=== PATIENT | male | born 1990 | race Hispanic/Latino ===

== ENCOUNTER 2018-02-11 19:45 | Emergency (ER) | payer SELFPAY ==
[2018-02-11] MEDS ORDERED: DERMABOND SKIN ADHESIVE TOP ONE (20:40)
[2018-02-11] MEDS ORDERED: TETANUS & DIPHTHERIA TOX,ADULT 0.5 ML VIAL ONE (20:40)
--- NOTE | 2018-02-11 20:40 | ER ---
Nurse's Notes [facility] Name: Jesse Peguero Jr Age: 27 yrs Sex: Male : 1990 Arrival Date: 02/11/2018 Time: 19:58 Bed 11 Private MD: Diagnosis: Superficial laceration of left hand Presentation: 02/11 20:31 Presenting complaint: Patient states: he cut the top of his left hand with a afognak bar bb approx an hour ago. Transition of care: patient was not received from another setting of care. Onset of symptoms was February 11, 2018. Risk Assessment: Do you want to hurt yourself or someone else? Patient reports no desire to harm self or others. Initial Sepsis Screen: Does the patient meet any 2 criteria? No. Patient's initial sepsis screen is negative. Does the patient have a suspected source of infection? No. Patient's initial sepsis screen is negative. Care prior to arrival: None. 20:31 Method Of Arrival: Ambulatory bb 20:31 Acuity: LAURI 4 bb Triage Assessment: 20:32 General: Appears in no apparent distress. Behavior is calm, cooperative. Pain: bb Complains of pain in left hand Pain currently is 5 out of 10 on a pain scale. Neuro: Level of Consciousness is awake, alert, obeys commands, Oriented to person, place, time, situation. Cardiovascular: No deficits noted. Respiratory: Airway is patent Respiratory effort is even, unlabored, Respiratory pattern is regular. GI: No deficits noted. Derm: Skin is pink, warm \T\ dry. Musculoskeletal: Circulation, motion, and sensation intact. Injury Description: Laceration sustained to MCP of left middle finger is clean, 0.5 to 2.5 cm long, was sustained 30-60 minutes ago. no active bleeding noted at this time. Historical: - Allergies: 20:32 No Known Allergies; bb - Home Meds: 20:32 None [Active]; bb - PMHx: 20:32 Hypertension; bb - PSHx: 20:32 None; bb - Immunization history:: Adult Immunizations up to date, Last tetanus immunization: unknown. - Social history:: Smoking status: Patient/guardian denies using tobacco, Patient uses alcohol, on a daily basis. - Ebola Screening: : No symptoms or risks identified at this time. - Family history:: not pertinent. - Hospitalizations: : No recent hospitalization is reported. Screenin:34 Abuse screen: Denies threats or abuse. Nutritional screening: No deficits noted. bb Tuberculosis screening: No symptoms or risk factors identified. Fall Risk None identified. Assessment: 20:34 Reassessment: No changes from previously documented assessment. see triage assessment. bb 21:02 Reassessment: Patient is alert, oriented x 3, equal unlabored respirations, skin bb warm/dry/pink. Vital Signs: 20:32 BP 150 / 95; Pulse 90; Resp 16 S; Temp 99(TE); Pulse Ox 99% on R/A; Weight 124.74 kg bb (R); Height 5 ft. 11 in. (180.34 cm) (R); Pain 5/10; 20:32 Body Mass Index 38.35 (124.74 kg, 180.34 cm) bb ED Course: 19:58 Patient arrived in ED. es 20:28 Donny Alexandre MD is Attending Physician. rn 20:32 Triage completed. bb 20:32 Arm band placed on Patient placed in an exam room, on a stretcher, on pulse oximetry. bb 20:34 Patient has correct armband on for positive identification. Bed in low position. Call bb light in reach. Side rails up X 1. Pulse ox on. NIBP on. 20:34 No provider procedures requiring assistance completed. Patient did not have IV access bb during this emergency room visit. 20:45 Dressings: Kerlix X 1; left hand 4X4s X 1; left hand. Wound care: to laceration located bb on MCP of left middle finger was cleaned with Betadine, Patient tolerated well. 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 Exp: bb 03/31/2020. Lot #: [id number]. } Route: IM; Site: left deltoid; Outcome: 20:40 Discharge ordered by . rn 21:03 Discharged to home ambulatory. bb 21:03 Condition: stable 21:03 Discharge instructions given to patient, Instructed on discharge instructions, follow up and referral plans. wound care, Demonstrated understanding of instructions, follow-up care, wound care. 21:04 Patient left the ED. bb Signatures: Vanessa Vidales Brenda, RN RN bb Donny Alexandre MD MD rn
--- NOTE | 2018-02-11 20:40 | EDPHYS ---
Physician Documentation [facility] Name: Jesse Peguero Jr Age: 27 yrs Sex: Male : 1990 Arrival Date: 02/11/2018 Time: 19:58 Bed 11 Private MD: ED Physician Donny Alexandre HPI: 02/11 20:31 This 27 yrs old Male presents to ER via Unassigned with complaints of Hand rn Injury. 20:31 The patient or guardian reports injury. The complaints affect the MCP of left middle rn finger. Onset: The symptoms/episode began/occurred just prior to arrival. Severity of symptoms: At their worst the symptoms were very mild, in the emergency department the symptoms are unchanged. The patient has not experienced similar symptoms in the past. Reports using crowbar, slipped, hit left hand, , superficial cut to left middle knuckle, is right handed, unknown tetanus.. Historical: - Allergies: 20:32 No Known Allergies; bb - Home Meds: 20:32 None [Active]; bb - PMHx: 20:32 Hypertension; bb - PSHx: 20:32 None; bb - Immunization history:: Adult Immunizations up to date, Last tetanus immunization: unknown. - Social history:: Smoking status: Patient/guardian denies using tobacco, Patient uses alcohol, on a daily basis. - Ebola Screening: : No symptoms or risks identified at this time. - Family history:: not pertinent. - Hospitalizations: : No recent hospitalization is reported. ROS: 20:31 Constitutional: Negative for fever, chills, and weight loss, MS/Extremity: + laceration rn left hand Neuro: Negative for weakness, numbness, tingling Exam: 20:31 Constitutional: This is a well developed, well nourished patient who is awake, alert, rn and in no acute distress. MS/ Extremity: Pulses equal, no cyanosis. Neurovascular intact. Full, normal range of motion. Equal circumference. left dorsal middle knuckle with superficial 2cm angular laceration, no active bleeding, wound clean. Vital Signs: 20:32 BP 150 / 95; Pulse 90; Resp 16 S; Temp 99(TE); Pulse Ox 99% on R/A; Weight 124.74 kg bb (R); Height 5 ft. 11 in. (180.34 cm) (R); Pain 5/10; 20:32 Body Mass Index 38.35 (124.74 kg, 180.34 cm) bb Laceration: 20:31 Wound Repair of 2cm ( 0.8in ) subcutaneous laceration to MCP of left middle finger. rn Distal neuro/vascular/tendon intact. Wound prep: Extensive cleansing by nurse. Skin closed with 1 thin layer Adhesive skin closure using Dermabond. Dressed with steri-strips. Patient tolerated well. MDM: 20:28 Patient medically screened. rn 20:31 Differential diagnosis: laceration of left hand. Data reviewed: vital signs, nurses rn notes, and as a result, I will discharge patient. Counseling: I had a detailed discussion with the patient and/or guardian regarding: the historical points, exam findings, and any diagnostic results supporting the discharge/admit diagnosis, the need for outpatient follow up, to return to the emergency department if symptoms worsen or persist or if there are any questions or concerns that arise at home. Response to treatment: the patient's symptoms have markedly improved after treatment, and as a result, I will discharge patient. Special discussion: I discussed with the patient/guardian in detail that at this point there is no indication for admission to the hospital. It is understood, however, that if the symptoms persist or worsen the patient needs to return immediately for re-evaluation. 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 Exp: bb 03/31/2020. Lot #: [id number]. } Route: IM; Site: left deltoid; Disposition: 02/11/18 20:40 Discharged to Home. Impression: Superficial laceration of left hand. - Condition is Stable. - Discharge Instructions: Tissue Adhesive Wound Care, Laceration Care, Adult. - Work release form, Medication Reconciliation Form, Thank You Letter, Antibiotic Education, Prescription Opioid Use form. - Follow up: Private Physician; When: As needed; Reason: Recheck today's complaints, Re-evaluation by your physician. - Problem is new. - Symptoms have improved. 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 Impression: Superficial laceration of left bb hand. Condition is Stable. Forms are Medication Reconciliation Form, Thank You Letter, Antibiotic Education, Prescription Opioid Use. Follow up: Private Physician; When: As needed; Reason: Recheck today's complaints, Re-evaluation by your physician. Problem is new. Symptoms have improved. rn
== END 2018-02-11 21:04 | disposition home or self-care (01) ==
LOC: ER 19:45
PROC: 0JQK0ZZ Repair Left Hand Subcutaneous Tissue and Fascia, Open Approach (ICD-10-PCS; principal; 2018-02-11)
DX: S61.213A Laceration without foreign body of left middle finger without damage to nail, initial encounter (principal); W27.8XXA Contact with other nonpowered hand tool, initial encounter; Y93.89 Activity, other specified; Y92.9 Unspecified place or not applicable; Z23 Encounter for immunization; I10 Essential (primary) hypertension
CPT/HCPCS: 90714; 99283

== ENCOUNTER 2020-08-06 11:59 | Emergency (ER) | payer SELFPAY ==
[2020-08-06] MEDS ORDERED: BENZONATATE 100 MG CAP PO ONE (13:34)
--- NOTE | 2020-08-06 14:03 | RAD REPORT ---
EXAM DESCRIPTION: RAD - Chest Single View - 08/06/2020 1:48 pm CLINICAL HISTORY: COUGH, COVID-19 like symptoms COMPARISON: Portable December 2016 TECHNIQUE: AP portable chest image was obtained 08/06/2020 1:48 pm . FINDINGS: Lungs are clear. No finding to suspect COVID-19 pneumonia. Heart and vasculature are [place] l. No measurable pleural effusion and no pneumothorax. No acute bony abnormality seen. No acute aorti c findings suspected. IMPRESSION: No acute cardiopulmonary process. No significant change from comparison study.
[2020-08-06 14:53] LABS: SARS-COV-2 RT PCR POSITIVE (NEGATIVE)
--- NOTE | 2020-08-06 15:16 | ER ---
Nurse's Notes [facility] Name: Jesse Peguero Jr Age: 29 yrs Sex: Male : 1990 Arrival Date: 08/06/2020 Time: 12:02 Bed 16 Private MD: Diagnosis: Coronavirus infection, unspecified;Other specified diseases of upper respiratory tract Presentation: 08/06 12:45 Chief complaint: Patient states: i have been having a lot of COVID symptoms, like tw2 Wednesday i felt dizzy my back and body aches, coughing headache, the pressure behind my eyes,i feel like a fever, i take medicine and it goes down, no taste and no smells. Chief complaint: Patient states: also my back hurts. Coronavirus screen: chills, cough unrelated to allergies, fatigue, fever, muscle pain, nausea, runny nose, sore throat, loss of taste or smell, Client presents with at least one sign or symptom that may indicate coronavirus-19. Standard/surgical mask placed on the client. Provider contacted for isolation considerations. Ebola Screen: Patient denies travel to an Ebola-affected area in the 21 days before illness onset. Initial Sepsis Screen: Does the patient meet any 2 criteria? No. Patient's initial sepsis screen is negative. Does the patient have a suspected source of infection? No. Patient's initial sepsis screen is negative. Risk Assessment: Do you want to hurt yourself or someone else? Patient reports no desire to harm self or others. Onset of symptoms was August 06, 2020. 12:45 Method Of Arrival: Ambulatory tw2 12:45 Acuity: LAURI 3 tw2 Triage Assessment: 12:48 Headache History: Denies prior headaches. General: Appears in no apparent distress. tw2 obese, well groomed, Behavior is calm, cooperative, appropriate for age. Pain: Complains of pain in face, right eye, left eye and nose Pain currently is 10 out of 10 on a pain scale. Pain began 2-3 days ago. Also complains of photophobia. Neuro: Reports headache. Respiratory: Reports cough that is. Historical: - Allergies: 12:48 No Known Drug Allergies; tw2 - Home Meds: 12:48 None [Active]; tw2 - PMHx: 12:48 Hypertension; tw2 - PSHx: 12:48 None; tw2 - Immunization history:: Adult Immunizations. - Social history:: Smoking status: Patient uses street drugs, marijuana. Screenin:00 Abuse screen: Denies threats or abuse. Denies injuries from another. Nutritional ca1 screening: No deficits noted. Tuberculosis screening: No symptoms or risk factors identified. Fall Risk None identified. Assessment: 13:00 General: Appears in no apparent distress. comfortable, Behavior is calm, cooperative, ca1 appropriate for age, Reports feeling ill for > 3 days, fatigue for >3 days. Pain: Complains of pain in all over. Neuro: Level of Consciousness is awake, alert, obeys commands, Oriented to person, place, time, situation, Appropriate for age Reports headache. Cardiovascular: Heart tones S1 S2 present Capillary refill < 3 seconds Patient's skin is warm and dry. Respiratory: Reports cough that is Airway is patent Respiratory effort is even, unlabored, Respiratory pattern is regular, symmetrical, Breath sounds are clear bilaterally. GI: Abdomen is round non-distended, Bowel sounds present X 4 quads. Abd is soft and non tender X 4 quads. Reports diarrhea, nausea. : No signs and/or symptoms were reported regarding the genitourinary system. EENT: Throat is clear Reports nasal congestion nasal discharge. Derm: Skin is intact, is healthy with good turgor, Skin is pink, warm \T\ dry. Musculoskeletal: Circulation, motion, and sensation intact. Capillary refill < 3 seconds. 14:00 Reassessment: Patient appears in no apparent distress at this time. Patient and/or ca1 family updated on plan of care and expected duration. Pain level reassessed. Patient is alert, oriented x 3, equal unlabored respirations, skin warm/dry/pink. 15:02 Reassessment: Patient appears in no apparent distress at this time. Patient and/or ca1 family updated on plan of care and expected duration. Pain level reassessed. Patient is alert, oriented x 3, equal unlabored respirations, skin warm/dry/pink. Vital Signs: 12:45 BP 148 / 94; Pulse 69; Resp 18; Temp 97.8(TE); Pulse Ox 98% on R/A; Weight 122.47 kg tw2 (R); Height 5 ft. 11 in. (180.34 cm); Pain 8/10; 13:20 BP 143 / 94; Pulse 70; Resp 17; Temp 97.6(TE); Pulse Ox 98% on R/A; mh5 14:10 BP 132 / 91; Pulse 63; Resp 16; Temp 98.2(O); Pulse Ox 97% on R/A; mh5 15:03 BP 149 / 99; Pulse 67; Resp 16; Pulse Ox 98% on R/A; ca1 12:45 Body Mass Index 37.66 (122.47 kg, 180.34 cm) tw2 ED Course: 12:02 Patient arrived in ED. ag3 12:47 Triage completed. tw2 12:48 Arm band placed on. tw2 12:56 Nury Lin, CLEMENCIA is Primary Nurse. ca1 12:56 Brayan Yanez PA is PHCP. cp 12:57 Brayan Burgos MD is Attending Physician. cp 13:00 Patient has correct armband on for positive identification. Bed in low position. Call ca1 light in reach. Side rails up X 1. Pulse ox on. NIBP on. 13:14 COVID swab sent to lab. Flu and/or RSV swab sent to lab. Strep swab sent to lab. ca1 13:20 COVID-19 Sent. 5 13:20 Flu Sent. 5 13:20 Strep Sent. [facility] 13:20 Group A Streptococcus Rapid Sc Sent. [facility] 13:20 Influenza Screen (A Sent. 5 13:50 XRAY Chest (1 view) In Process Unspecified. EDMS 14:13 Throat Culture Sent. sv 15:37 No provider procedures requiring assistance completed. Patient did not have IV access ca1 during this emergency room visit. Administered Medications: 13:20 Drug: Tessalon Perle 200 mg Route: PO; ca1 14:23 Follow up: Response: No adverse reaction; Marked relief of symptoms ca1 Outcome: 15:16 Discharge ordered by MD. cp 15:37 Discharged to home ambulatory. ca1 15:37 Condition: stable 15:37 Discharge instructions given to patient, Instructed on discharge instructions, follow up and referral plans. medication usage, Demonstrated understanding of instructions, follow-up care, medications, Prescriptions given X 4. 15:38 Patient left the ED. ca1 Signatures: Dispatcher [employer] [facility] Perla Tenorio RN RN Brayan Yanez PA PA Allie Sidhu RN RN 2 Radha Baker [facility] Kate Forte ag3 Nury Lin, RN RN ca1 Corrections: (The following items were deleted from the chart) 13:57 13:20 CORONAVIRUS drawn and sent. [facility] SHRUTHI
--- NOTE | 2020-08-06 15:16 | EDPHYS ---
Physician Documentation [facility] Name: Jesse Peguero Jr Age: 29 yrs Sex: Male : 1990 Arrival Date: 08/06/2020 Time: 12:02 Bed 16 Private MD: ED Physician Brayan Burgos HPI: 08/06 13:15 This 29 yrs old Male presents to ER via Ambulatory with complaints of cp Headache, Cough, Runny Nose. 13:15 The patient complains of pain to the top of head and forehead. cp 13:15 The patient describes the headache as aching. cp 13:15 Onset: The symptoms/episode began/occurred 3 day(s) ago. Associated signs and symptoms: cp Pertinent positives: fever, cough, nasal congestion, Pertinent negatives: neck stiffness, vision changes. Historical: - Allergies: 12:48 No Known Drug Allergies; tw2 - Home Meds: 12:48 None [Active]; tw2 - PMHx: 12:48 Hypertension; tw2 - PSHx: 12:48 None; tw2 - Immunization history:: Adult Immunizations. - Social history:: Smoking status: Patient uses street drugs, marijuana. ROS: 13:25 Constitutional: Positive for body aches, Negative for fever, poor PO intake. cp 13:25 Eyes: Negative for injury, pain, redness, and discharge. cp 13:25 Respiratory: Positive for cough, Negative for shortness of breath, wheezing. cp 13:25 ENT: Positive for sore throat, Negative for ear pain, difficulty swallowing, difficulty cp handling secretions. 13:25 Neuro: Positive for headache, Negative for altered mental status, weakness. 13:25 All other systems are negative. Exam: 13:30 Constitutional: The patient appears in no acute distress, alert, awake, non-toxic, well cp developed, well nourished. 13:30 Head/Face: Normocephalic, atraumatic. cp 13:30 Eyes: Periorbital structures: appear normal, Conjunctiva: normal, no exudate, no injection, Lids and lashes: appear normal, bilaterally. 13:30 ENT: External ear(s): are unremarkable, Ear canal(s): are normal, clear, TM's: dullness, bilaterally, Nose: nasal drainage, that is minimal, that is clear, Mouth: Lips: moist, Oral mucosa: moist, Posterior pharynx: Airway: no evidence of obstruction, patent, Tonsils: no enlargement, no exudate, swelling, is not appreciated, erythema, that is mild, exudate, is not appreciated. 13:30 Neck: ROM/movement: is normal, is supple, no meningismus, no nuchal rigidity, Lymph nodes: no appreciated lymphadenopathy. 13:30 Chest/axilla: Inspection: normal, Palpation: is normal, no crepitus, no tenderness. 13:30 Cardiovascular: Rate: normal, Rhythm: regular. 13:30 Respiratory: the patient does not display signs of respiratory distress, Respirations: normal, no use of accessory muscles, no retractions, labored breathing, is not present, Breath sounds: bronchial sounds, that are mild, are heard diffusely, decreased breath sounds, are not appreciated, stridor, is not appreciated, + upper airway congestion. wheezing: is not appreciated. 13:30 Abdomen/GI: Inspection: abdomen appears normal, Palpation: abdomen is soft and non-tender, in all quadrants. 13:30 Back: pain, is absent, ROM is normal. 13:30 Neuro: Orientation: to person, place \T\ time. Mentation: is normal. Vital Signs: 12:45 BP 148 / 94; Pulse 69; Resp 18; Temp 97.8(TE); Pulse Ox 98% on R/A; Weight 122.47 kg tw2 (R); Height 5 ft. 11 in. (180.34 cm); Pain 8/10; 13:20 BP 143 / 94; Pulse 70; Resp 17; Temp 97.6(TE); Pulse Ox 98% on R/A; mh5 14:10 BP 132 / 91; Pulse 63; Resp 16; Temp 98.2(O); Pulse Ox 97% on R/A; mh5 15:03 BP 149 / 99; Pulse 67; Resp 16; Pulse Ox 98% on R/A; ca1 12:45 Body Mass Index 37.66 (122.47 kg, 180.34 cm) tw2 MDM: 13:03 Patient medically screened. [facility] 13:30 Differential diagnosis: meningitis, meningoencephalitis, migraine, sinusitis, cp pneumonia, influenza, strep throat. 15:15 Data reviewed: vital signs, nurses notes, lab test result(s), radiologic studies, plain cp films, and as a result, I will discharge patient. 08/06 13:08 Order name: COVID-19 ca1 08/06 13:08 Order name: Flu ca1 08/06 13:08 Order name: Strep ca1 08/06 13:09 Order name: Group A Streptococcus Rapid Sc; Complete Time: 14:55 EDMS 08/06 13:09 Order name: XRAY Chest (1 view); Complete Time: 14:55 cp 08/06 14:12 Order name: Throat Culture EDMS 08/06 14:54 Order name: COVID-19/FLU A+B EDMS Administered Medications: 13:20 Drug: Tessalon Perle 200 mg Route: PO; ca1 14:23 Follow up: Response: No adverse reaction; Marked relief of symptoms ca1 Disposition: 08/06/20 15:16 Discharged to Home. Impression: Coronavirus infection, unspecified, Other specified diseases of upper respiratory tract. - Condition is Stable. - Discharge Instructions: Upper Respiratory Infection, Adult, COVID-19. - Prescriptions for Tessalon Perles 100 mg Oral Capsule - take 2 capsule by ORAL route every 8 hours As needed; 30 capsule. Zithromax Z- Pelon 250 mg Oral Tablet - take 1 tablet by ORAL route as directed for 5 days Day 1 - take two (2) tablets one time. Day 2, 3, 4 , 5 take one (1) tablet once daily.; 6 tablet. Medrol (Pelon) 4 mg Oral Tablets, Dose Pack - take 1 tablet by ORAL route as directed - follow package instructions; 1 packet. Albuterol Sulfate 90 mcg/actuation - inhale 1-2 puff by INHALATION route every 4-6 hours; 1 Inhaler. - Work release form, Medication Reconciliation Form, Thank You Letter, Antibiotic Education, Prescription Opioid Use form. - Follow up: Private Physician; When: 2 - 3 days; Reason: Worsening of condition. - Problem is new. - Symptoms have improved. Addendum: 08/07/2020 17:20 Co-signature as Attending Physician, Brayan Burgos MD I agree with the assessment and c lopez plan of care. Signatures: Dispatcher [employer] [facility] Brayan Burgos MD MD cha Page, Corey, PA PA Allie Sidhu RN RN tw2 Acob, Nury, RN RN ca1 Corrections: (The following items were deleted from the chart) 08/06 13:57 13:09 CORONAVIRUS ordered. EDMS EDMS 15:38 15:16 08/06/2020 15:16 Discharged to Home. Impression: Coronavirus infection, ca1 unspecified; Other specified diseases of upper respiratory tract. Condition is Stable. Forms are Medication Reconciliation Form, Thank You Letter, Antibiotic Education, Prescription Opioid Use. Follow up: Private Physician; When: 2 - 3 days; Reason: Worsening of condition. Problem is new. Symptoms have improved. cp
[2020-08-06 16:08] VITALS: TEMP 98.2
[2020-08-06 16:09] VITALS: BP 149/99; O2SAT 98
== END 2020-08-06 15:38 | disposition home or self-care (01) ==
LOC: ER 11:59
DX: U07.1 COVID-19 (principal); J98.8 Other specified respiratory disorders; I10 Essential (primary) hypertension
CPT/HCPCS: 0240U; 71045; 87070; 87081; 99284

== ENCOUNTER 2022-12-30 14:34 | Emergency (ER) | payer SELFPAY ==
[2022-12-30] MEDS ORDERED: TETANUS & DIPHTHERIA TOX,ADULT 0.5 ML VIAL ONE (15:06)
[2022-12-30] MEDS ORDERED: LIDOCAINE 1% MPF 5 ML VIAL ONE (15:06)
--- NOTE | 2022-12-30 15:51 | ER ---
Nurse's Notes [facility] Name: Jesse Peguero Jr Age: 32 yrs Sex: Male : 1990 Arrival Date: 12/30/2022 Time: 14:34 Bed Treatment Private MD: Diagnosis: Laceration without foreign body of right index finger without damage to nail Presentation: 12/30 14:42 Chief complaint: Patient states: "1 hour ago, I was cutting something with a handsaw mb9 and sliced my right index finger". Coronavirus screen: Vaccine status: Patient reports receiving the 2nd dose of the covid vaccine. Ebola Screen: No symptoms or risks identified at this time. Initial Sepsis Screen: Does the patient meet any 2 criteria? No. Patient's initial sepsis screen is negative. Does the patient have a suspected source of infection? No. Patient's initial sepsis screen is negative. Risk Assessment: Do you want to hurt yourself or someone else? Patient reports no desire to harm self or others. Onset of symptoms was December 30, 2022. 14:42 Method Of Arrival: Ambulatory mb9 14:42 Acuity: LAURI 4 mb9 Historical: - Allergies: 14:44 No Known Allergies; mb9 - Home Meds: 14:44 None [Active]; mb9 - PMHx: 14:44 Hypertension; mb9 - PSHx: 14:44 None; mb9 - Immunization history:: Adult Immunizations up to date. - Social history:: Smoking status: Patient denies any tobacco usage or history of. Screenin:06 [facility] ED Fall Risk Assessment (Adult) History of falling in the last 3 months, mb9 including since admission No falls in past 3 months (0 pts) Confusion or Disorientation No (0 pts) Intoxicated or Sedated No (0 pts) Impaired Gait No (0 pts) Mobility Assist Device Used No (0 pt) Altered Elimination No (0 pt) Score/Fall Risk Level 0 - 2 = Low Risk Oriented to surroundings, Maintained a safe environment, Educated pt \\T\\ family on fall prevention, incl call for assistance when getting out of bed. Abuse screen: Denies threats or abuse. Nutritional screening: No deficits noted. Tuberculosis screening: No symptoms or risk factors identified. Assessment: 16:04 Pain: Complains of pain in right hand Quality of pain is described as throbbing. mb9 Respiratory: Airway is patent Respiratory effort is even, unlabored, Respiratory pattern is regular, symmetrical. Derm: Skin is pink, warm \\T\\ dry. Musculoskeletal: Range of motion: intact in all extremities. Injury Description: Laceration sustained to dorsal aspect of proximal phalanx of right index finger is superficial, 0.5 to 2.5 cm long, not bleeding. Vital Signs: 14:42 Weight 127.01 kg; Height 5 ft. 11 in. ; mb9 14:42 BP 133 / 85; Pulse 71; Resp 18; Temp 98.2; Pulse Ox 100% ; Pain 8/10; mb9 16:15 BP 128 / 79; Pulse 76; Resp 17; Pulse Ox 98% on R/A; mb9 14:42 Body Mass Index 39.05 (127.01 kg, 180.34 cm) mb9 14:42 Pain Scale: Adult mb9 ED Course: 14:37 Patient arrived in ED. kj1 14:41 Zeinab Holloway FNP-C [facility] kb 14:41 Donny Alexandre MD is Attending Physician. kb 14:44 Triage completed. mb9 14:44 Arm band placed on. mb9 16:06 Assist provider with laceration repair. Patient did not have IV access during this mb9 emergency room visit. 16:09 Placed in gown. Bed in low position. Call light in reach. Side rails up X 1. Client mb9 placed on continuous cardiac and pulse oximetry monitoring. NIBP monitoring applied. Administered Medications: 15:10 Drug: Tetanus-Diphtheria Toxoid IM Adult 0.5 ml {Property Technician: [employer]. Exp: mb9 01/10/2024. Lot #: [id number]. } Route: IM; Site: right deltoid; 16:05 Follow up: Response: No adverse reaction mb9 15:50 Drug: Lidocaine Infiltration (1 %) 1 vials Volume: 5 ml; Route: Infiltration; mb9 Medication: 16:09 VIS not applicable for this client. mb9 Outcome: 15:50 Discharge ordered by . kb 16:15 Discharged to home ambulatory. mb9 16:15 Condition: stable 16:15 Discharge instructions given to patient, Instructed on discharge instructions, follow up and referral plans. Demonstrated understanding of instructions, follow-up care. 16:16 Patient left the ED. mb9 Signatures: Zeinab Holloway KEG INSPECTOR-C KEG INSPECTOR-Amber Cameron kj1 Augustina Vital RN RN mb9 Corrections: (The following items were deleted from the chart) 14:45 14:42 Pulse 71bpm; Resp 18bpm; Pulse Ox 100%; Temp 98.2F; Pain 8/10, Adult; mb9 mb9
--- NOTE | 2022-12-30 15:51 | EDPHYS ---
Physician Documentation [facility] Name: Jesse Peguero Jr Age: 32 yrs Sex: Male : 1990 Arrival Date: 12/30/2022 Time: 14:34 Bed Treatment Private MD: ED Physician Donny Alexandre HPI: 12/30 15:48 This 32 yrs old Male presents to ER via Ambulatory with complaints of Finger kb Injury. 15:48 The patient has a laceration related to: cutting wood with hand saw and it hit finger kb causing laceration occurred outdoors, and there are no complicating factors. The injury was accidental. The laceration(s) is(are) located on the dorsal aspect of proximal phalanx of right index finger. Onset: The symptoms/episode began/occurred just prior to arrival. Associated signs and symptoms: The patient has no apparent associated signs or symptoms. The patient has not experienced similar symptoms in the past. The patient has not recently seen a physician. Historical: - Allergies: 14:44 No Known Allergies; mb9 - Home Meds: 14:44 None [Active]; mb9 - PMHx: 14:44 Hypertension; mb9 - PSHx: 14:44 None; mb9 - Immunization history:: Adult Immunizations up to date. - Social history:: Smoking status: Patient denies any tobacco usage or history of. ROS: 15:44 Constitutional: Negative for fever, chills, and weight loss. kb 15:44 Skin: Positive for laceration(s), of the dorsal aspect of proximal phalanx of right index finger. 15:44 All other systems are negative. Exam: 15:44 Constitutional: This is a well developed, well nourished patient who is awake, alert, kb and in no acute distress. Head/Face: Normocephalic, atraumatic. ENT: Moist Mucous membranes Cardiovascular: Regular rate and rhythm with a normal S1 and S2. No gallops, murmurs, or rubs. No pulse deficits. Respiratory: Respirations even and unlabored. No increased work of breathing. Talking in full sentences MS/ Extremity: Pulses equal, no cyanosis. Neurovascular intact. Full, normal range of motion. Neuro: Awake and alert, GCS 15, oriented to person, place, time, and situation. Moves all extremities. Normal gait. 15:44 Skin: injury, laceration(s), the wound is approximately 2.5 cm(s), of the dorsal aspect of proximal phalanx of right index finger, that can be described as clean, no foreign body, irregular, jagged, without bleeding. Vital Signs: 14:42 Weight 127.01 kg; Height 5 ft. 11 in. ; mb9 14:42 BP 133 / 85; Pulse 71; Resp 18; Temp 98.2; Pulse Ox 100% ; Pain 8/10; mb9 16:15 BP 128 / 79; Pulse 76; Resp 17; Pulse Ox 98% on R/A; mb9 14:42 Body Mass Index 39.05 (127.01 kg, 180.34 cm) mb9 14:42 Pain Scale: Adult mb9 Laceration: 15:49 Wound Repair of 2.5cm ( 1.0in ) subcutaneous laceration to dorsal aspect of proximal kb phalanx of right index finger. Linear shaped.. Distal neuro/vascular/tendon intact. Anesthesia: Wound infiltrated with 3 mls of 1% lidocaine. Wound prep: Extensive cleansing with hibiclenz by me, Wound irrigation with saline by me, Wound margin revised, Wound explored. Skin closed with 5 4-0 Prolene using simple sutures and sterile technique. Patient tolerated well. MDM: 14:41 Patient medically screened. kb 15:45 Data reviewed: vital signs, nurses notes. Counseling: I had a detailed discussion with kb the patient and/or guardian regarding: the historical points, exam findings, and any diagnostic results supporting the discharge/admit diagnosis, the need for outpatient follow up, a family practitioner, to return to the emergency department if symptoms worsen or persist or if there are any questions or concerns that arise at home. ED course: Wound explored. Full ROM of finger. cap refill less than 2 secs. . 15:46 Differential diagnosis: superficial laceration, tendon injury, vascular injury. Test kb considered but Not performed: X-ray: hand x-ray considered, but pt has full ROM of finger, no bony tenderness. 12/30 14:45 Order name: Dressing - Wound; Complete Time: 15:24 kb 12/30 14:45 Order name: Gloves, Sterile; Complete Time: 15:24 kb 12/30 14:45 Order name: Prolene, Sutures; Complete Time: 15:24 kb 12/30 14:45 Order name: Setup Suture Tray; Complete Time: 15:24 kb Administered Medications: 15:10 Drug: Tetanus-Diphtheria Toxoid IM Adult 0.5 ml {Financial Internship: [email or web address]. Exp: mb9 01/10/2024. Lot #: [id number]. } Route: IM; Site: right deltoid; 16:05 Follow up: Response: No adverse reaction mb9 15:50 Drug: Lidocaine Infiltration (1 %) 1 vials Volume: 5 ml; Route: Infiltration; mb9 Disposition: 16:29 Co-signature as Attending Physician, Donny Alexandre MD I reviewed the patient's care rn provided by the Advanced Practice Provider and agree with the diagnosis and treatment plan. Disposition Summary: 12/30/22 15:50 Discharge Ordered Location: Home kb Condition: Stable kb Diagnosis - Laceration without foreign body of right index finger without damage to nail kb Followup: kb - With: Emergency Department - When: As needed - Reason: Worsening of condition Followup: kb - With: Private Physician - When: 2 - 3 days - Reason: Recheck today's complaints, Continuance of care, Re-evaluation by your physician Discharge Instructions: - Discharge Summary Sheet kb - Laceration Care, Adult, [id number] kb Forms: - Medication Reconciliation Form kb - Thank You Letter kb - Antibiotic Education kb - Prescription Opioid Use kb - Work release form mb9 Signatures: Zeinab Holloway, NADINE-C LENS GRINDER ROUGH-Donny Martin MD MD rn Breneman, Mary Beth, RN RN mb9
[2022-12-30 16:22] VITALS: TEMP 98.2
[2022-12-30 16:23] VITALS: BP 128/79; O2SAT 98
== END 2022-12-30 16:16 | disposition home or self-care (01) ==
LOC: ER 14:34
PROC: 0HQFXZZ Repair Right Hand Skin, External Approach (ICD-10-PCS; principal; 2022-12-30)
DX: S61.210A Laceration without foreign body of right index finger without damage to nail, initial encounter (principal); Z23 Encounter for immunization
CPT/HCPCS: 90471; 90714; 99284; J2001

== ENCOUNTER 2024-05-26 06:32 | Emergency (ER) | payer SELFPAY ==
--- NOTE | 2024-05-26 08:24 | RAD REPORT ---
EXAMINATION: ONE VIEW CHEST XR CLINICAL INDICATION: Male, 33 years old.,Chest pain;Cough TECHNIQUE: Frontal chest projection is submitted. Examination is limited by patient positioning and t echnique. COMPARISON: 02/18/2024 FINDINGS: The lungs are well inflated and clear. No pneumothorax or sizable effusion. The heart is normal in s ize. IMPRESSION: No acute intrathoracic abnormalities.
--- NOTE | 2024-05-26 08:31 | EDPHYS ---
Physician Documentation [facility] Name: Jesse Peguero Jr Age: 33 yrs Sex: Male : 1990 Arrival Date: 05/26/2024 Time: 06:32 Bed 3 Private MD: ED Physician Perla Amado HPI: 05/26 07:19 This 33 yrs old Male presents to ER via Ambulatory with complaints of Cough, sd2 Congestion, Fever. 07:19 33 yo M presents with CC of productive cough, nasal congestion and subjective fever for sd2 the past week and a half. Also reports chest pain only with coughing. Reports felt better for a little while then worsened again. Had nausea and diarrhea 2 days ago that has since resolved. Reports the cough is the worst part. Has tried multiple OTC medications with temporary relief.. Historical: - Allergies: 07:07 No Known Allergies; ha1 - PMHx: 07:07 Hypertension; ha1 - Immunization history:: Adult Immunizations up to date. - Infectious Disease History:: Denies. - Social history:: Smoking status: Patient denies any tobacco usage or history of. ROS: 07:19 Eyes: Negative for injury, pain, redness, and discharge, sd2 07:19 Neck: Negative for injury, pain, and swelling, 07:19 MS/Extremity: Negative for injury and deformity, Skin: Negative for injury, rash, and discoloration, 07:19 Constitutional: Positive for body aches, fever, Negative for weight loss, 07:19 ENT: Positive for sinus congestion, sore throat, 07:19 Cardiovascular: Positive for chest pain, Negative for edema, palpitations, 07:19 Respiratory: Positive for cough, Negative for shortness of breath, wheezing, 07:19 Abdomen/GI: Positive for nausea, diarrhea, Negative for abdominal pain, vomiting, Exam: 07:19 Constitutional: This is a well developed, well nourished patient who is awake, alert, sd2 and in no acute distress. Head/Face: Normocephalic, atraumatic. Eyes: EOMI, normal conjunctiva bilaterally ENT: Nares patent. No nasal discharge, no septal abnormalities noted. Nasal congestion noted. Oropharynx with no redness, swelling, or masses, exudates, or evidence of obstruction, uvula midline. Mucous membranes moist. Neck: Trachea midline, no thyromegaly or masses palpated, and no cervical lymphadenopathy. Supple, full range of motion without nuchal rigidity, or vertebral point tenderness. No Meningismus. Chest/axilla: Normal chest wall appearance and motion. Nontender with no deformity. Cardiovascular: Regular rate and rhythm with a normal S1 and S2. No gallops, murmurs, or rubs. 2+ distal pulses. Respiratory: Lungs have equal breath sounds bilaterally, clear to auscultation and percussion. No rales, rhonchi or wheezes noted. No increased work of breathing, no retractions or nasal flaring. Abdomen/GI: Soft, non-tender, with normal bowel sounds. No guarding or rebound. No evidence of tenderness throughout. Skin: Warm, dry with normal turgor. Normal color with no rashes, no lesions, and no evidence of cellulitis. MS/ Extremity: Pulses equal, no cyanosis. Neurovascular intact. Full, normal range of motion. Psych: Awake, alert, with orientation to person, place and time. Behavior, mood, and affect are within normal limits. 07:36 ECG was reviewed by the Attending Physician. NSR, rate 63, no STEMI criteria sd2 Vital Signs: 06:39 BP 128 / 90; Pulse 72; Resp 18 S; Temp 98.1(T); Pulse Ox 99% on R/A; Weight 122.47 kg; ha1 Height 5 ft. 11 in. ; 07:17 BP 121 / 82; Pulse 74; Resp 16; Pulse Ox 98% on R/A; ko1 08:04 BP 141 / 99; Pulse 62; Resp 16; Pulse Ox 100% on R/A; ko1 08:47 BP 123 / 72; Pulse 64; Resp 18; Pulse Ox 99% on R/A; ko1 06:39 Body Mass Index 37.66 (122.47 kg, 180.34 cm) ha1 MDM: 07:19 Differential Diagnosis: Bronchitis Influenza Upper Respiratory Infection Sinusitis sd2 Pharyngitis Viral Syndrome Pneumonia Other among others. Data reviewed: vital signs, nurses notes, EKG, radiologic studies, plain films. Test considered but Not performed: Other Details COVID and flu swabs declined by patient after discussion. Care significantly affected by the following chronic conditions: Hypertension. Counseling: I had a detailed discussion with the patient and/or guardian regarding the historical points, exam findings, and any diagnostic results supporting the discharge/admit diagnosis, radiology results, the need for outpatient follow up, to return to the emergency department if symptoms worsen or persist or if there are any questions or concerns that arise at home. ED course: Pt advised of all results and need for outpatient follow up as well as continued supportive care. Verbalizes understanding of dc plan and strict return precautions. . 07:31 Medical Screening Exam initiated sd2 05/26 07:19 Order name: XRAY Chest (1 view); Complete Time: 08:31 sd2 05/26 07:19 Order name: EKG - Nurse/Tech; Complete Time: 07:36 sd2 Administered Medications: No medications were administered Disposition Summary: 05/26/24 08:31 Discharge Ordered Problem: new sd2 Symptoms: are unchanged sd2 Condition: Stable sd2 Diagnosis - Acute upper respiratory infection, unspecified sd2 - Chest pain, unspecified sd2 - Cough sd2 Followup: sd2 - With: Private Physician - When: 2 - 3 days - Reason: Recheck today's complaints, Continuance of care, Re-evaluation by your physician Discharge Instructions: - Discharge Summary Sheet sd2 - Nonspecific Chest Pain, Adult sd2 - Upper Respiratory Infection, Adult sd2 Forms: - Medication Reconciliation Form sd2 - Antibiotic Education sd2 - Prescription Opioid Use sd2 - Patient Portal Instructions sd2 - Leadership Thank You Letter sd2 - Work release form ko1 Prescriptions: - Guaifenesin AC 10-100 mg/5 mL Oral liquid - take 10 milliliters ORAL route every 4-6 hours As needed; 240 milliliter; sd2 Refills: 0, Product Selection Permitted Signatures: Dispatcher [employer] Perla Joseph MD MD sd2 Brittni Monreal RN RN ha1 Corrections: (The following items were deleted from the chart) 07:20 07:20 Chest Single View+RAD.RAD.[email or web address] ordered. SHRUTHI HAWKINS
--- NOTE | 2024-05-26 08:31 | ER ---
Nurse's Notes [facility] Name: Jesse Peguero Jr Age: 33 yrs Sex: Male : 1990 Arrival Date: 05/26/2024 Time: 06:32 Bed 3 Private MD: Diagnosis: Acute upper respiratory infection, unspecified;Chest pain, unspecified;Cough Presentation: 05/26 06:39 Chief complaint: Patient states: COUGH, NASAL CONGESTION, AND SORE THROAT. ha1 06:39 Coronavirus screen: Vaccine status: Patient reports being unvaccinated. Ebola Screen: ha1 No symptoms or risks identified at this time. Initial Sepsis Screen: Does the patient meet any 2 criteria? No. Patient's initial sepsis screen is negative. Does the patient have a suspected source of infection? No. Patient's initial sepsis screen is negative. Risk Assessment: Do you want to hurt yourself or someone else? Patient reports no desire to harm self or others. Onset of symptoms was May 26, 2024. 06:39 Method Of Arrival: Ambulatory ha1 06:39 Acuity: LAURI 4 ha1 Triage Assessment: 06:50 General: Appears comfortable, Behavior is calm, cooperative. Pain: Complains of pain in ha1 SORE THROAT Pain does not radiate. Pain currently is 7 out of 10 on a pain scale. Neuro: Level of Consciousness is awake, alert, obeys commands, Oriented to person, place, time, situation. Cardiovascular: Patient's skin is warm and dry. Respiratory: Reports cough that is NASAL CONGESTION Airway is patent Respiratory effort is even, unlabored, Respiratory pattern is regular, symmetrical. Musculoskeletal: Circulation, motion, and sensation intact. Range of motion: intact in all extremities. Historical: - Allergies: 07:07 No Known Allergies; ha1 - PMHx: 07:07 Hypertension; ha1 - Immunization history:: Adult Immunizations up to date. - Infectious Disease History:: Denies. - Social history:: Smoking status: Patient denies any tobacco usage or history of. Screenin:17 [facility] ED Fall Risk Assessment (Adult) History of falling in the last 3 months, ko1 including since admission No falls in past 3 months (0 pts) Confusion or Disorientation No (0 pts) Intoxicated or Sedated No (0 pts) Impaired Gait No (0 pts) Mobility Assist Device Used No (0 pt) Altered Elimination No (0 pt) Score/Fall Risk Level 0 - 2 = Low Risk Oriented to surroundings, Maintained a safe environment, Educated pt \T\ family on fall prevention, incl call for assistance when getting out of bed, Assessed \T\ reinforced patient's understanding of fall precautions, Hourly rounding (assess needs \T\ fall precautionary measures) done. Abuse screen: Denies threats or abuse. Denies injuries from another. Nutritional screening: No deficits noted. Tuberculosis screening: No symptoms or risk factors identified. Assessment: 07:17 General: Appears in no apparent distress. Behavior is calm, cooperative, appropriate ko1 for age. Pain: Denies pain. Neuro: No deficits noted. Cardiovascular: No deficits noted. Cardiovascular: Rhythm is regular. Cardiovascular: Capillary refill < 3 seconds Patient's skin is warm and dry. Respiratory: Reports cough that is non-productive, Breath sounds are clear bilaterally. Respiratory: Airway is patent GI: No deficits noted. : No deficits noted. EENT: Reports nasal congestion. Derm: No deficits noted. Musculoskeletal: No deficits noted. Vital Signs: 06:39 BP 128 / 90; Pulse 72; Resp 18 S; Temp 98.1(T); Pulse Ox 99% on R/A; Weight 122.47 kg; ha1 Height 5 ft. 11 in. ; 07:17 BP 121 / 82; Pulse 74; Resp 16; Pulse Ox 98% on R/A; ko1 08:04 BP 141 / 99; Pulse 62; Resp 16; Pulse Ox 100% on R/A; ko1 08:47 BP 123 / 72; Pulse 64; Resp 18; Pulse Ox 99% on R/A; ko1 06:39 Body Mass Index 37.66 (122.47 kg, 180.34 cm) ha1 ED Course: 06:36 Patient arrived in ED. gm2 07:07 Triage completed. ha1 07:07 Perla Amado MD is Attending Physician. sd2 07:15 Jana Witt, CLEMENCIA is Primary Nurse. ko1 07:16 ED physician to see patient. ko1 07:16 Patient has correct armband on for positive identification. Bed in low position. Call ko1 light in reach. Side rails up X 1. Provided Education on: tests. Pulse ox on. NIBP on. Door closed. Noise minimized. Lights dimmed. Warm blanket given. Pillow given. 07:17 No provider procedures requiring assistance completed. Patient did not have IV access ko1 during this emergency room visit. 07:20 Patient placed in an exam room, on a stretcher, on electronic device monitor, on pulse oximetry, ko1 Patient notified of wait time. 07:29 XRAY Chest (1 view) In Process Unspecified. EDMS 07:36 EKG done, by ED staff, reviewed by Jana Witt RN. [email or web address] Administered Medications: No medications were administered Medication: 07:17 VIS not applicable for this client. ko1 Outcome: 08:31 Discharge ordered by . sd2 08:47 Discharged to home ambulatory, ko1 08:47 Condition: stable 08:47 Discharge instructions given to patient, Instructed on discharge instructions, follow up and referral plans. medication usage, Demonstrated understanding of instructions, follow-up care, medications, Prescriptions given X 1, 08:48 Patient left the ED. ko1 Signatures: Dispatcher [employer] EDMS Perla Amado MD MD sd2 Brittni Monreal, RN RN Jana Yu, RN RN ko1 Augustina Barrett RN RN [email or web address] Elena Torrez 2
--- NOTE | 2024-05-26 14:10 | EKG ---
Test Date: 2024-05-26 Test Time: 07:34:46 B2B Sales Manager: MB MEASUREMENT RESULTS: Intervals: Rate: 63 WI: 156 QRSD: 96 QT: 420 QTc: 429 [place]: P: 57 WI: 156 QRS: 99 T: 53 INTERPRETIVE STATEMENTS: Normal sinus rhythm Normal ECG Compared to ECG 01/16/2014 15:03:45 Right-axis deviation no longer present Electronically Signed On 05-26-24 14:09:23 CDT by Mk Rodney
[2024-05-26 19:10] VITALS: TEMP 98.1
[2024-05-26 19:14] VITALS: BP 123/72; O2SAT 99
== END 2024-05-26 08:48 | disposition home or self-care (01) ==
LOC: ER 06:32
DX: J06.9 Acute upper respiratory infection, unspecified (principal); R05.9 Cough, unspecified; I10 Essential (primary) hypertension
CPT/HCPCS: 71045; 93005; 99284

== ENCOUNTER 2024-12-23 08:06 | Emergency (ER) | payer SELFPAY ==
--- OUTSIDE RECORDS SUMMARY | 2024-12-23 08:10 | XMS REPORT | Continuity of Care Document ---
Author Name Unknown Address [address] [facility] [place] [address] [facility] Address [address] [place] [address] Care Team Providers Care Kennel Keeper Name Role Phone PCP, PATIENT DOES NOT HAVE A Primary Care Physic braulio Unavailable JACKELINE MENESES Attending Clinician Unavailable JACKELINE MENESES Attending Clinician Unavailable Jackeline Meneses DO Attending Clinician [phone] Dinesh ESPINOZA Attending Clinician Unavailable Dinesh ESPINOZA Attending Clinician Unavailable RICARDO SIMPSON Attending Clinician Unavailable Nasir Harris MD Attending Clinician [phone] Soraida Morales MD Attending Clinician [phone] Ricardo Simpson DO Attending Clinician [phone] JACKELINE MENESES Admitting Clinician Unavailable Dinesh ESPINOZA Admitting Clinician Unavailable SORAIDA MORALES Admitting Clinician Unavailable Soraida Morales MD Admitting Clinician [phone] JACKELINE MENESES Admitting Clinician Unavailable Problems Condition Name Condition Details Condition Category Status Onset Date Resolution Date Last Treatment Date Treating Clinician Comments Source Testicular pain, right Testicular pain, right Disease Active 01-24 00:00: 00 [facility] Morbid obesity with body mass index of 40.0-49.9 Morbid obesity with body mass index of 40.0-49.9 Disease Active 01-24 00:00: 00 [facility] Allergies, Adverse Reactions, Alerts Allergy Name Allergy Type Status Severity Reaction(s) Onset Date Inactive Date Treating Clinician Comments Source NO KNOWN ALLERGIE S Drug Class Active [facility] Social History Social Habit Start Date Stop Date Quantity Comments Source History of tobacco use Cigarette Smoker [facility] function 2024-02-12 00:00:00 2024-02-12 00:00:00 [facility] Tobacco use and exposure 2023-01-24 00:00:00 2023-01-24 00:00:00 Smokeless tobacco non-user [facility] Sex assigned at 1990 00:00:00 1990 00:00:00 [facility] Smoking Status Start Date Stop Date Source Tobacco smoking consumption unknown [facility] Ex-smoker 2023-01-24 00:00:00 2023-01-24 00:00:00 [facility] Medications Ordered Medication Name Filled Medication Name Start Date Stop Date Current Medication? Ordering Clinician Indication Dosage Frequency Signature (SIG) Comments Components Source clindamycin 300 mg capsule 08-29 00:00: 00 09-06 05:59 :00 No [id number] 300mg Take 1 capsule by mouth 4 (four) times daily for 7 days. [facility] HYDROcodone -acetaminop hen 10-325 mg tablet 08-29 00:00: 00 09-06 05:59 :00 No [id number] 1{tbl} Take 1 tablet by mouth every 6 (six) hours as needed for Pain (scale 7-10) for up to 7 days. Indication s: acute pain [facility] acetaminoph en (TYLENOL) tablet 1,000 mg 02-12 07:30: 00 02-12 07:27 :00 No 1000mg 1,000 mg, Oral, ONCE, 1 dose, On 02/13/24 at 0230, Routine [facility] methylpredn isolone sod succ (SOLU-MEDRO L) injection 125 mg 02-12 05:15: 00 02-12 04:44 :00 No 125mg 125 mg, Intramuscu lar, ONCE, 1 dose, On 02/13/24 at 0015, DORIAN [facility] predniSONE 20 mg tablet 02-12 00:00: 00 08-29 00:00 :00 No [id number] 45445 1 PO BID x 4 days [facility] benzonatate 200 mg capsule 11-23 00:00: 00 08-29 00:00 :00 No [id number] 200mg Take 1 capsule by mouth 3 (three) times daily as needed for Cough for up to 20 doses. [facility] ondansetron 4 mg disintegrat ing tablet 11-23 00:00: 00 08-29 00:00 :00 No [id number] 4mg Take 1 tablet by mouth every 8 (eight) hours as needed for Nausea and Vomiting (N/V). [facility] enoxaparin (LOVENOX) injection 40 mg 01-24 22:00: 00 Yes 40mg 40 mg, Subcutaneo us, DAILY, First dose on Wed01/24/23 at 1700, Until Discontinu ed, Routine [facility] sennosides- docusate sodium (SENOKOT-S) 8.6-50 mg per tablet 1 tablet 01-24 14:00: 00 Yes 1{tbl} 1 tablet, Oral, DAILY, First dose on Wed01/24/23 at 0900, Until Discontinu ed, Routine [facility] ciprofloxac in in 5 % dextrose (CIPRO) piggyback 400 mg 01-24 13:00: 00 02-03 12:59 :00 No 400mg 400 mg, IV Piggyback, Q12H ABX, 20 doses, First dose on Wed01/24/23 at 0800, Last dose on Wed02/02/23 at 2000, Administer over 60 Minutes, 200 mL
Reas on for Anti-Infec tive: Documented Infection< br>Documen darius Infection Site: Urine
D uration of Therapy: 7 days [facility] acetaminoph en (TYLENOL) tablet 650 mg 01-24 10:28: 14 Yes 650mg 650 mg, Oral, Q6HPRN, Starting on Wed01/24/23 at 0528, Until Discontinu ed, Routine, Pain (scale 1-3) [facility] morpHINE (4 mg/mL) injection 2 mg 01-24 10:26: 38 Yes 2mg 2 mg, Slow IV Push, Q4HPRN, Starting on Wed01/24/23 at 0526, Until Discontinu ed, Routine, Pain (scale 7-10) [facility] ketorolac (TORADOL) injection 30 mg 01-24 07:30: 00 01-24 06:37 :00 No 30mg 30 mg, Slow IV Push, ONCE, 1 dose, On [place] 01/24/23 at 0230, Routine [facility] morpHINE (4 mg/mL) injection 4 mg 01-24 06:45: 00 01-24 06:37 :00 No 4mg 4 mg, Slow IV Push, ONCE, 1 dose, On [place] 01/24/23 at 0145, STAT [facility] levoFLOXaci n in D5W (LEVAQUIN) 750 mg/150 mL Piggyback 750 mg 01-24 04:30: 00 01-24 07:18 :00 No 750mg 750 mg, IV Piggyback, ONCE, 1 dose, On 01/23/23 at 2330, Administer over 90 Minutes, 150 mL
Reas on for Anti-Infec tive: Documented Infection< br>Documen darius Infection Site: Urine
D uration of Therapy: Other (see Comments) [facility] FENTanyl PF (SUBLIMAZE (PF)) injection 75 mcg 01-24 02:30: 00 01-24 02:30 :00 No 75ug 75 mcg, Slow IV Push, ONCE, 1 dose, On 01/23/23 at 2130, STAT [facility] ciprofloxac in HCl 500 mg tablet 01-24 00:00: 00 02-04 04:59 :00 No [id number] 500mg Take 1 tablet by mouth every 12 (twelve) hours for 10 days. [facility] cefTRIAXone (ROCEPHIN) injection 500 mg 01-22 01:15: 00 01-22 00:40 :00 No 500mg 500 mg, Intramuscu lar, ONCE, 1 dose, On [place] 01/21/23 at 2014, DORIAN
Re ason for Anti-Infec tive: Empiric Therapy for Suspected Infection< br>Empiric Therapy Site: Pelvic
Duration of therapy: 72 hours [facility] NaCl 0.9% (NS) bolus infusion 1,000 mL 01-22 00:00: 00 01-22 00:30 :00 No 1000mL at 999 mL/hr, 1,000 mL, IV Piggyback, ONCE, 1 dose, On [place] 01/21/23 at 1900, STAT [facility] ketorolac (TORADOL) injection 15 mg 01-21 23:00: 00 01-22 22:59 :00 No 15mg 15 mg, Slow IV Push, Q6H, 4 doses, First dose on [place] 01/21/23 at 1800, Last dose on Wed01/22/23 at 1200, Routine [facility] ondansetron (ZOFRAN (PF)) injection 4 mg 01-21 23:00: 00 01-21 23:55 :00 No 4mg 4 mg, Slow IV Push, ONCE, 1 dose, On Wed01/21/23 at 1800, Routine [facility] doxycycline hyclate 100 mg capsule 01-21 00:00: 00 02-01 04:59 :00 No [id number] 100mg Take 1 capsule by mouth in the morning and 1 capsule in the evening. Do all this for 10 days. [facility] Vital Signs Vital Name Observation Time Observation Value Comments Morena hirsch Systolic blood pressure 2024-08-30 02:00:00 140 mm[Hg] [facility] Diastolic blood pressure 2024-08-30 02:00:00 88 mm[Hg] [facility] Heart rate 2024-08-30 02:00:00 90 /min [facility] Body temperature 2024-08-30 02:00:00 36.89 Leta [facility] Respiratory rate 2024-08-30 02:00:00 17 /min [facility] Oxygen saturation in Arterial blood by Pulse oximetry 2024-08-30 02:00:00 98 /min [facility] Body height 2024-08-30 00:10:00 180.3 cm [facility] Body weight 2024-08-30 00:10:00 120.203 kg [facility] BMI 2024-08-30 00:10:00 36.96 kg/m2 [facility] Systolic blood pressure 2024-02-13 07:25:00 167 mm[Hg] [facility] Diastolic blood pressure 2024-02-13 07:25:00 83 mm[Hg] [facility] Heart rate 2024-02-13 07:25:00 58 /min [facility] Body temperature 2024-02-13 07:25:00 36.67 Leta [facility] Respiratory rate 2024-02-13 07:25:00 16 /min [facility] Oxygen saturation in Arterial blood by Pulse oximetry 2024-02-13 07:25:00 97 /min [facility] Body height 2024-02-13 03:25:00 180.3 cm [facility] Body weight 2024-02-13 03:25:00 120.203 kg [facility] BMI 2024-02-13 03:25:00 36.96 kg/m2 [facility] Oxygen saturation in Arterial blood by Pulse oximetry 2023-11-24 20:32:04 100 /min [facility] Systolic blood pressure 2023-11-24 20:32:04 138 mm[Hg] [facility] Diastolic blood pressure 2023-11-24 20:32:04 85 mm[Hg] [facility] Heart rate 2023-11-24 20:32:04 66 /min [facility] Body temperature 2023-11-24 20:32:04 36.39 Leta [facility] Respiratory rate 2023-11-24 20:32:04 16 /min [facility] Body height 2023-11-24 17:12:00 180.3 cm [facility] Body weight 2023-11-24 17:12:00 120.203 kg [facility] BMI 2023-11-24 17:12:00 36.96 kg/m2 [facility] Systolic blood pressure 2023-01-24 20:19:00 138 mm[Hg] [facility] Diastolic blood pressure 2023-01-24 20:19:00 88 mm[Hg] [facility] Heart rate 2023-01-24 20:19:00 78 /min [facility] Body temperature 2023-01-24 20:19:00 37 Leta [facility] Respiratory rate 2023-01-24 20:19:00 14 /min [facility] Oxygen saturation in Arterial blood by Pulse oximetry 2023-01-24 20:19:00 97 /min [facility] Body weight 2023-01-24 09:16:00 125 kg [facility] BMI 2023-01-24 09:16:00 47.30 kg/m2 [facility] Body height 2023-01-24 09:09:00 162.6 cm [facility] Systolic blood pressure 2023-01-22 00:00:00 145 mm[Hg] [facility] Diastolic blood pressure 2023-01-22 00:00:00 98 mm[Hg] [facility] Heart rate 2023-01-22 00:00:00 84 /min [facility] Respiratory rate 2023-01-22 00:00:00 16 /min [facility] Oxygen saturation in Arterial blood by Pulse oximetry 2023-01-22 00:00:00 96 /min [facility] Body temperature 2023-01-21 22:50:00 36.78 Leta [facility] Body height 2023-01-21 22:50:00 180.3 cm [facility] Body weight 2023-01-21 22:50:00 124.739 kg [facility] BMI 2023-01-21 22:50:00 38.35 kg/m2 [facility] Procedures Procedure Date / Time Performed Performing Clinicia n Source XR FINGERS 2 VW LEFT 2024-08-30 00:48:00 Nelson Meneses [facility] RAPID INFLUENZA A/B 2023-11-24 18:58:00 Dinesh Espinoza [facility] COVID-19 (ID NOW RAPID TESTING) 2023-11-24 18:58:00 Dinesh Espinoza [facility] RAPID STREP SCREEN FOR GROUP A 2023-11-24 18:58:00 Dinesh Espinoza [facility] US TESTICULAR TORSION 2023-01-24 03:54:15 Emilio Harris [facility] URINALYSIS 2023-01-24 02:43:00 Nasir Harris [facility] COMP. METABOLIC PANEL ([id number]) 2023-01-24 01:50:00 Nasir Harris [facility] CBC WITH DIFF 2023-01-24 01:50:00 Nasir Harris [facility] HIV 1/2 AG-AB WITH REFLEX 2023-01-24 01:50:00 Augustine Sanchez [facility] CONSENT/REFUSAL FOR DIAGNOSIS AND TREATMENT 2023-01-24 00:40:25 Doctor Unassigned, [place] [facility] US TESTICULAR TORSION 2023-01-21 23:56:52 Haris Meneses [facility] CT ABDOMEN PELVIS WO CONTRAST 2023-01-21 23:54:40 Jackeline Meneses [facility] COMP. METABOLIC PANEL ([id number]) 2023-01-21 23:09:00 Jackeline Meneses [facility] CBC WITH DIFF 2023-01-21 23:09:00 Jackeline Meneses [facility] URINALYSIS 2023-01-21 23:09:00 [facility] CONSENT/REFUSAL FOR DIAGNOSIS AND TREATMENT 2023-01-21 22:46:35 Doctor Unassigned, [place] [facility] NOTICE OF PRIVACY PRACTICES 2023-01-21 22:46:16 Doctor Unassigned, [place] [facility] Encounters Start Date/Time End Date/Time Encounter Type Admission Type Attending [facility] Care Facility Care Department Encounter ID Source 2024-08-29 18:12:00 2024-08-29 20:32:00 Emergency JACKELINE HERNANDEZ [facility]ILLIP [facility] ERT [id number] [facility] 2024-08-29 18:12:00 2024-08-29 20:32:00 Emergency MenesesJackeline [facility] [id number] [id number] [id number] [id number] [facility] 2024-02-12 22:27:00 2024-02-13 02:46:00 Emergency Dinesh SANCHEZ ALEXIS Dinesh [facility] ERT [id number] [facility] 2024-02-12 22:27:00 2024-02-13 02:46:00 Emergency Dinesh Espinoza Marge [facility] [id number] 350.1.13.10 [id number] [id number] [facility] 2023-11-24 12:13:00 2023-11-24 15:33:00 Emergency Dinesh SANCHEZ [facility] ERT [id number] [facility] 2023-11-24 12:13:00 2023-11-24 15:33:00 Emergency Dinesh Espinoza [facility] [id number] 350.1.13.10 [id number] [id number] [facility] 2023-01-23 20:01:00 2023-01-24 17:49:00 Outpatient RICARDO NGUYEN [facility] [id number] [facility] 2023-01-23 20:01:00 2023-01-24 17:49:00 Emergency Nasir Harris Nitza Sweet, Patrick [facility] [id number] [id number] [id number] [id number] [facility] 2023-01-21 17:51:00 2023-01-21 19:47:00 Emergency X JACKELINE MENESES [facility] ERT [id number] [facility] 2023-01-21 17:51:00 2023-01-21 19:47:00 Emergency Jackeline Meneses [facility] [id number] [id number] [id number] [id number] [facility] Results Test Description Test Time Test Comments Results Resul t Comments Source XR Fingers 2 vw left 2024-08-03 9 01:25:37 ORDERING PROVIDER: ?JACKELINE MENESES HISTORY: ?left index fb TECHNIQUE: AP and lateral views of the left index finger Technical Quality: Adequate COMPARISON: None FINDINGS: There is an approximately 2 cm long curvilinear radiopaque/metallic densityforeign body within the palmar soft tissues of the index finger centered atthe level the IP joint. Foreign body does not directly abut the bonystructures. The osseous structures remain anatomically aligned. No acute fractures aredetected. [id number] 23:50:23* Test Item Value Reference Range Interpretation Comme nts WBC (test code = 6690-2) 11.91 See_Comment H [Automated DeskLodgea ge] The system which generated this result transmitted reference range: 4.20 - 10.70 10*3/?L. The reference range was not used to interpret this result as normal/abnormal. RBC (test code = 789-8) 4.75 See_Comment [Automated DeskLodgea ge] The system which generated this result transmitted reference range: 4.26 - 5.52 10*6/?L. The reference range was not used to interpret this result as normal/abnormal. HGB (test code = 718-7) 14.7 g/dL 12.2-16.4 HCT (test code = 4544-3) 43.0 % 38.4-49.3 MCV (test code = 787-2) 90.5 fL 81.7-95.6 MCH (test code = 785-6) 30.9 pg 26.1-32.7 MCHC (test code = 786-4) 34.2 g/dL 31.2-35.0 RDW-SD (test code = 56543-9) 41.1 fL 38.5-51.6 RDW-CV (test code = 788-0) 12.5 % 12.1-15.4 PLT (test code = 777-3) 252 See_Comment [Automated messa ge] The system which generated this result transmitted reference range: 150 - 328 10*3/?L. The reference range was not used to interpret this result as normal/abnormal. MPV (test code = 62429-1) 10.0 fL 9.8-13.0 NRBC/100 WBC (test code = 5735038447) 0.0 See_Comment [Automated Pepscan ssage] The system which generated this result transmitted reference range: 0.0 - 10.0 /100 WBCs. The reference range was not used to interpret this result as normal/abnormal. NRBC x10^3 (test code = 4999447747) See_Comment [Automated messa ge] The system which generated this result transmitted reference range: 10*3/?L. The reference range was not used to interpret this result as normal/abnormal. GRAN MAT (NEUT) % (test code = 770-8) 81.4 % IMM GRAN % (test code = 1502088894) 0.30 % LYMPH % (test code = 736-9) 11.8 % MONO % (test code = 5905-5) 5.9 % EOS % (test code = 713-8) 0.2 % BASO % (test code = 706-2) 0.4 % GRAN MAT x10^3(ANC) (test code = 6960531300) 9.69 10*3/uL 1.99-6.95 H IMM GRAN x10^3 (test code = 4418113148) 0.04 10*3/uL 0.00-0.06 LYMPH x10^3 (test code = 731-0) 1.41 10*3/uL 1.09-3.23 MONO x10^3 (test code = 742-7) 0.70 10*3/uL 0.36-1.02 EOS x10^3 (test code = 711-2) 0.06-0.53 L BASO x10^3 (test code = 704-7) 0.05 10*3/uL 0.01-0.09 Lab Interpretation (test code = 08691-3) Abnormal [facility] Notes Date/Time Note Provider Source 2024-08-29 20:31:19 Pt given printed and verbal discharge instructions regarding finger pain, embedded foreign body Prescriptions provided: START taking these medications clindamycin 300 mg capsule Commonly known as: CLEOCIN HCL Take 1 capsule by mouth 4 (four) times daily for 7 days. HYDROcodone-acetaminophen 10-325 mg tablet Commonly known as: NORCO Take 1 tablet by mouth every 6 (six) hours as needed for Pain (scale 7-10) for up to 7 days. Indications: acute pain Pt verbalized understanding of instructions, pt awake alert oriented, resp reg unlabored, skin w/d, color appropriate for race, moves all ext well,pt encouraged to follow up with pcp Advised to seek medical attention for new/prolonged/worsening of symptoms Awake, alert oriented, resp reg unlabored, skin w/d, pt leaving amb with steady gait, in no apparent distress NA Ferrell RN [facility] 2024-08-29 18:09:03 CC: patient presents to the ER with complaints of a piece of metal to the left index finger. Patient states he was working on his truck when the incident occurred, patient states he was wearing gloves. Unknown tetanus status. Awake, alert, oriented, resp reg unlabored, skin warm and dry, color appropriate for race, moves all ext without difficulty, amb without assistance. Appears in no distress. NA Verma RN [facility] 2024-02-13 02:45:48 Pt given printed and verbal discharge instructions regarding achilles tendinitis, encouraged RICE, Prescription sent to pt's pharmacy Discussed ibuprofen and to take with food to avoid GI distress, alternate with Tylenol to help with pain and/or fever Discussed steroid therapy and to take until all completed unless adverse reaction occurs - if occurs, discontinue medication and follow up with pcp/seek medical attention Pt verbalized understanding of instructions,pt encouraged to follow up with pcp and or ortho Advised to seek medical attention for new/prolonged/worsening of symptoms, No adverse reaction to meds given in ER noted upon discharge Awake, alert oriented, resp reg unlabored, skin w/d, pt leaving in no apparent distress, Kylie Elder RN [facility] 2024-02-12 22:24:07 Pt to ED CO heel pain near the L achilles tendon. Pt does not recall any trauma to leg. Reports some heavy lifting. Is not on any antibiotics or medications. Painful during ambulation. No deformities noted. Vanita Jeong RN [facility] 2023-11-24 15:33:41 PT D/C home. GCS15, VS stable. Given D/C paperwork. Pt ambulatory at time of discharge. Pt educated on med usage, follow up care, s/s worsening condition, need for hydration. Pt verbalized understanding. Pt ambulated from ED in NAD Tracy Kincaid RN [facility] 2023-11-24 12:11:01 Pt arrived via private car with c/o generalized body aches and "sweating" for about 1 week. 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 Reports his son had the flu last week. Cynthia Livingston RN [facility]
[2024-12-23] MEDS ORDERED: predniSONE 20 MG TAB ONE (08:36)
[2024-12-23] MEDS ORDERED: FAMOTIDINE 20 MG/2 ML VIAL IV ONE (08:36)
[2024-12-23] MEDS ORDERED: NA CHLORIDE 0.9% 1,000 ML ONE (08:36)
[2024-12-23] MEDS ORDERED: DIPHENHYDRAMINE 50 MG/ML VIAL ONE (08:36)
[2024-12-23 08:39] LABS: Absolute Eosinophils 0.5 K/uL (0-0.5); Absolute Lymphocytes (CBC) 1.1 K/uL (0.7-4.9); Absolute Monocytes 0.5 K/uL (0.1-1.3); Absolute Neutrophil 4.1 K/uL (1.8-8.0); Basophils % 0.4 % (0-1.3); Eosinophils % 7.7 % (0-4.4); Hematocrit 45.7 % (39.6-49.0); Hemoglobin 15.3 g/dL (13.6-17.9); Lymphocytes % 17.3 % (15.3-44.8); MCH 29.9 pg (27.0-35.0); MCHC 33.4 g/dL (32.0-36.0); MCV 89.4 fL (80-100); MPV 7.9 fL (7.6-11.3); Monocytes % 8.1 % (3.3-12.3); Neutrophils % 66.5 % (41.7-73.7); Nucleated Red Blood Cells % 0.1 % (0-0); Platelets 248 thou/uL (152-406); RBC Red Blood Cell Count 5.11 M/uL (4.33-5.43); Red Cell Distribution Width 13.3 % (12.1-15.2)
--- NOTE | 2024-12-23 09:10 | EDPHYS ---
Physician Documentation [facility] Name: Jesse Peguero Jr Age: 34 yrs Sex: Male : 1990 Arrival Date: 12/23/2024 Time: 08:06 Bed 11 Private MD: ED Physician Brayan Burgos HPI: 12/23 09:02 This 34 yrs old Male presents to ER via Ambulatory with complaints of Allergic rivera Reaction. 09:02 The patient presents with diffuse swelling, rash, redness of skin. Onset: The rivera symptoms/episode began/occurred 2 day(s) ago. Associated signs and symptoms: Pertinent positives: hives, rash. Possible causes: poison niecy, poison oak. At home the patient or guardian has treated the symptoms with Benadryl. Severity of symptoms: At their worst the symptoms were moderate in the emergency department the symptoms are worse. The patient has experienced similar episodes in the past, several times. Historical: - Allergies: 08:25 No Known Allergies; iw - Home Meds: 08:25 None [Active]; iw - PMHx: 08:25 Hypertension; iw - PSHx: 08:25 None; iw - Immunization history:: Adult Immunizations. - Infectious Disease History:: Denies. - Social history:: Smoking status: Patient denies any tobacco usage or history of. ROS: 09:07 Constitutional: Negative for fever, chills, and weight loss, Eyes: Negative for injury, rivera pain, redness, and discharge, ENT: Negative for injury, pain, and discharge, Neck: Negative for injury, pain, and swelling, Cardiovascular: Negative for chest pain, palpitations, and edema, Respiratory: Negative for shortness of breath, cough, wheezing, and pleuritic chest pain, Abdomen/GI: Negative for abdominal pain, nausea, vomiting, diarrhea, and constipation, Back: Negative for injury and pain, : Negative for injury, bleeding, discharge, and swelling, MS/Extremity: Negative for injury and deformity, Neuro: Negative for headache, weakness, numbness, tingling, and seizure, Psych: Negative for depression, anxiety, suicide ideation, homicidal ideation, and hallucinations, Allergy/Immunology: Negative for hives, rash, and allergies, Endocrine: Negative for neck swelling, polydipsia, polyuria, polyphagia, and marked weight changes, Hematologic/Lymphatic: Negative for swollen nodes, abnormal bleeding, and unusual bruising, 09:07 Skin: Positive for erythema, rash, Exam: 09:07 Constitutional: This is a well developed, well nourished patient who is awake, alert, rivera and in no acute distress. Head/Face: Normocephalic, atraumatic. Eyes: Pupils equal round and reactive to light, extra-ocular motions intact. Lids and lashes normal. Conjunctiva and sclera are non-icteric and not injected. Cornea within normal limits. Periorbital areas with no swelling, redness, or edema. ENT: Nares patent. No nasal discharge, no septal abnormalities noted. Tympanic membranes are normal and external auditory canals are clear. Oropharynx with no redness, swelling, or masses, exudates, or evidence of obstruction, uvula midline. Mucous membranes moist. Neck: Trachea midline, no thyromegaly or masses palpated, and no cervical lymphadenopathy. Supple, full range of motion without nuchal rigidity, or vertebral point tenderness. No Meningismus. Chest/axilla: Normal chest wall appearance and motion. Nontender with no deformity. No lesions are appreciated. Cardiovascular: Regular rate and rhythm with a normal S1 and S2. No gallops, murmurs, or rubs. Normal PMI, no JVD. No pulse deficits. Respiratory: Lungs have equal breath sounds bilaterally, clear to auscultation and percussion. No rales, rhonchi or wheezes noted. No increased work of breathing, no retractions or nasal flaring. Abdomen/GI: Soft, non-tender, with normal bowel sounds. No distension or tympany. No guarding or rebound. No evidence of tenderness throughout. Back: No spinal tenderness. No costovertebral tenderness. Full range of motion. Male : Normal genitalia with no discharge or lesions. MS/ Extremity: Pulses equal, no cyanosis. Neurovascular intact. Full, normal range of motion., bilateral aka Neuro: Awake and alert, GCS 15, oriented to person, place, time, and situation. Cranial nerves II-XII grossly intact. Motor strength 5/5 in all extremities. Sensory grossly intact. Cerebellar exam normal. Normal gait. Psych: Awake, alert, with orientation to person, place and time. Behavior, mood, and affect are within normal limits. 09:07 Skin: Appearance: Color: normal in color, Temperature: normal temperature, Moisture: normal moisture, petechiae, not noted, ecchymosis, not noted, flushing, not noted, diaphoresis is not appreciated, contact dermatitis, Vital Signs: 08:24 BP 134 / 85; Pulse 85; Resp 19; Temp 98.9; Pulse Ox 98% on R/A; Weight 120.2 kg; Height iw 5 ft. 11 in. ; :24 Body Mass Index 36.96 (120.20 kg, 180.34 cm) iw MDM: 08:18 Medical Screening Exam initiated [facility] : Differential diagnosis: anaphylaxis, angioedema, urticaria. Data reviewed: vital signs, [facility] nurses notes, lab test result(s), CBC, electrolytes. Consideration of Admission/Observation Escalation of care including admission/observation considered. I considered the following discharge prescriptions or medication management in the emergency department Medications were administered in the Emergency Department. See MAR. Test considered but Not performed: X-ray: no cxr. Historians other than the Patient: pt well informed. Care significantly affected by the following chronic conditions: Hypertension, Obesity. 12/23 08:19 Order name: CBC with Diff [facility] 12/23 08:19 Order name: CMP [facility] Administered Medications: 08:35 Drug: NS 0.9% IV 1000 ml IV at 1000 ml once; to be given as a bolus over 60 minutes iw Route: IV; Rate: 1000 ml; Site: right antecubital; 10:00 Follow up: IV Status: Completed infusion iw 08:35 Drug: diphenhydrAMINE IVP 50 mg IVP once Route: IVP; Site: right antecubital; iw 10:30 Follow up: Response: No adverse reaction; Marked relief of symptoms iw 08:35 Drug: Famotidine IVP 40 mg IVP once; dilute with 10 mL 0.9% NaCl; give over 2 minutes iw Route: IVP; Site: right antecubital; 10:30 Follow up: Response: No adverse reaction iw 08:35 Drug: predniSONE PO 60 mg PO once Route: PO; iw 10:30 Follow up: Response: No adverse reaction; Marked relief of symptoms iw 09:34 Drug: MethylPrednisoLONE IVP 125 mg IVP once Route: IVP; Site: right antecubital; iw 10:30 Follow up: Response: No adverse reaction; Marked relief of symptoms iw Disposition Summary: 12/23/24 09:10 Discharge Ordered Notes: Location: Home [facility] Problem: new [facility] Symptoms: have improved rivera Condition: Stable [facility] Diagnosis - Allergic contact dermatitis, unspecified cause rivera - Irritant contact dermatitis due to plants, except food rivera Followup: rivera - With: Private Physician - When: 2 - 3 days - Reason: Recheck today's complaints, Continuance of care, Re-evaluation by your physician Discharge Instructions: - Discharge Summary Sheet rivera - Contact Dermatitis rivera - Poison [place] Dermatitis rivera - Poison [place] Dermatitis rivera - Rash, Adult rivera - Rash, Adult, [id number] rivera - Poison [place] Dermatitis, [id number] rivera - Contact Dermatitis, [id number] rivera - Poison [place] Dermatitis, [id number] [facility] Forms: - Medication Reconciliation Form [facility] - Antibiotic Education [facility] - Prescription Opioid Use [facility] - Patient Portal Instructions [facility] - Leadership Thank You Letter [facility] Prescriptions: - Pepcid 40 mg Oral tablet - take 1 tablet ORAL route 2 times per day; 20 tablet; Refills: 0, Product [facility] Selection Permitted - Benadryl 25 mg Oral capsule - take 2 capsule ORAL route every 6 hours As needed; 56 tablet; Refills: 0, [facility] Product Selection Permitted - Prednisone 20 mg Oral Tablet - take 3 tablets ORAL route once daily for 5 days; 15 tablet; Refills: 0, Product [facility] Selection Permitted Signatures: Dispatcher [employer] Brayan Renner MD MD cha Williams, Irene RN RN iw
--- NOTE | 2024-12-23 09:10 | ER ---
Nurse's Notes [facility] Name: Jesse Peguero Jr Age: 34 yrs Sex: Male : 1990 Arrival Date: 12/23/2024 Time: 08:06 Bed 11 Private MD: Diagnosis: Allergic contact dermatitis, unspecified cause;Irritant contact dermatitis due to plants, except food Presentation: 12/23 08:24 Chief complaint: Patient states: got into some poison won 4 days ago, itchy rash all iw over body. Coronavirus screen: At this time, the client does not indicate any symptoms associated with coronavirus-19. Ebola Screen: No symptoms or risks identified at this time. Onset: The symptoms/episode began/occurred 4 day(s) ago. Anaphylaxis evaluation, no signs or symptoms of anaphylaxis were noted. Initial Sepsis Screen: Does the patient meet any 2 criteria? No. Patient's initial sepsis screen is negative. Does the patient have a suspected source of infection? No. Patient's initial sepsis screen is negative. Risk Assessment: Do you want to hurt yourself or someone else? Patient reports no desire to harm self or others. 08:24 Method Of Arrival: Ambulatory iw 08:24 Acuity: LAURI 3 iw Historical: - Allergies: 08:25 No Known Allergies; iw - Home Meds: 08:25 None [Active]; iw - PMHx: 08:25 Hypertension; iw - PSHx: 08:25 None; iw - Immunization history:: Adult Immunizations. - Infectious Disease History:: Denies. - Social history:: Smoking status: Patient denies any tobacco usage or history of. Screenin:16 [facility] ED Fall Risk Assessment (Adult) History of falling in the last 3 months, iw including since admission No falls in past 3 months (0 pts) Confusion or Disorientation No (0 pts) Intoxicated or Sedated No (0 pts) Impaired Gait No (0 pts) Mobility Assist Device Used No (0 pt) Altered Elimination No (0 pt) Score/Fall Risk Level 0 - 2 = Low Risk Oriented to surroundings, Maintained a safe environment. Abuse screen: Denies threats or abuse. Nutritional screening: No deficits noted. Tuberculosis screening: No symptoms or risk factors identified. Assessment: 08:30 General: Appears uncomfortable, Behavior is calm, cooperative. Pain:. Neuro: Level of iw Consciousness is awake, alert, obeys commands, Oriented to person, place, time, situation, Moves all extremities. Full function. Respiratory: Airway is patent Respiratory effort is even, unlabored, GI: Abdomen is non-distended. Derm: Rash noted that is itchy, red, on face, abdomen, right arm, left arm, right leg and left leg. Vital Signs: 08:24 BP 134 / 85; Pulse 85; Resp 19; Temp 98.9; Pulse Ox 98% on R/A; Weight 120.2 kg; Height iw 5 ft. 11 in. ; 08:24 Body Mass Index 36.96 (120.20 kg, 180.34 cm) iw ED Course: 08:08 Patient arrived in ED. ts1 08:18 Brayan Burgos MD is Attending Physician. rivera 08:24 Anitra Lees, CLEMENCIA is Primary Nurse. iw 08:25 Triage completed. iw 08:25 Arm band placed on. iw 08:30 Initial lab(s) drawn, by me, sent to lab. Inserted saline lock: 20 gauge in right iw antecubital area, using aseptic technique. Blood collected. Flushed with 10 mL NS. 08:33 CMP Sent. iw 08:33 CBC with Diff Sent. iw Administered Medications: 08:35 Drug: NS 0.9% IV 1000 ml IV at 1000 ml once; to be given as a bolus over 60 minutes iw Route: IV; Rate: 1000 ml; Site: right antecubital; 10:00 Follow up: IV Status: Completed infusion iw 08:35 Drug: diphenhydrAMINE IVP 50 mg IVP once Route: IVP; Site: right antecubital; iw 10:30 Follow up: Response: No adverse reaction; Marked relief of symptoms iw 08:35 Drug: Famotidine IVP 40 mg IVP once; dilute with 10 mL 0.9% NaCl; give over 2 minutes iw Route: IVP; Site: right antecubital; 10:30 Follow up: Response: No adverse reaction iw 08:35 Drug: predniSONE PO 60 mg PO once Route: PO; iw 10:30 Follow up: Response: No adverse reaction; Marked relief of symptoms iw 09:34 Drug: MethylPrednisoLONE IVP 125 mg IVP once Route: IVP; Site: right antecubital; iw 10:30 Follow up: Response: No adverse reaction; Marked relief of symptoms iw Medication: 09:16 VIS not applicable for this client. iw Outcome: 09:10 Discharge ordered by MD. stafford 10:17 Patient left the ED. iw Signatures: Brayan Burgos MD MD cha Williams, Irene, RN RN Sherly Brown, RAUL CARTER ts1
[2024-12-23 09:13] LABS: Albumin 3.5 g/dL (3.4-5.0); Albumin/Globulin Ratio 0.9 (1.1-1.8); Anion Gap 11.2 mEq/L (5.0-15.0); Bilirubin Total 0.5 mg/dL (0.2-1.0); Globulin 3.8 g/dL (2.3-3.5); Potassium 4.2 mEq/L (3.5-5.1); Protein, Total 7.3 g/dL (6.4-8.2)
[2024-12-23] MEDS ORDERED: METHYLPREDNISOLONE 125 MG INJ ONE (09:27)
[2024-12-23 10:30] VITALS: BP 134/85; TEMP 98.9; O2SAT 98
== END 2024-12-23 10:17 | disposition home or self-care (01) ==
LOC: ER 08:06
DX: L24.7 Irritant contact dermatitis due to plants, except food (principal)
CPT/HCPCS: 36415; 80053; 85025; 96361; 96374; 96375; 99284; J1200; J2919; J7030; J7512